=== PATIENT | female | born 1960 | race American Indian/Alaskan Native ===

== ENCOUNTER 2018-12-09 23:57 | Observation (INO) | payer MEDICAID ==
[2018-12-10] MEDS ORDERED: ASPIRIN PO ONE (00:05)
--- NOTE | 2018-12-10 00:41 | XRay Report ---
PROCEDURE: XR CHEST ROUTINE 2V TECHNIQUE: PA and lateral chest radiographs were obtained. HISTORY: Chest Pain COMPARISONS: None. FINDINGS: Heart: Normal. Mediastinum/Vessels: Normal. Lungs/Pleural space: Normal. Bony thorax: No acute osseous abnormality. IMPRESSION: No acute cardiopulmonary process.. This document is electronically signed by Remy Hinojosa MD., Dec 10 2018 12:39:49 AM ET
[2018-12-10 01:06] LABS: Alanine Aminotransferase 14 units/L (7-56); BUN/Creatinine Ratio 29; Blood Urea Nitrogen 20 mg/dL (7-17); Calcium 9.6 mg/dL (8.4-10.2); Hemolysis Index 21
[2018-12-10 01:45] LABS: Hematocrit 43.1 % (30.3-42.9); Hemoglobin 14.7 gm/dl (10.1-14.3); Mean Corpuscular HGB Conc 34 % (30-34); Mean Corpuscular Volume 92 fl (79-97); Platelet Count 183 K/mm3 (140-440); Red Blood Count 4.67 M/mm3 (3.65-5.03); Red Cell Distribution Width 13.7 % (13.2-15.2)
[2018-12-10 02:27] LABS: Basophils % (Manual) 0 % (0.0-1.8); Total Cells Counted 100
[2018-12-10 02:28] LABS: Large Platelets 1+; Platelet Estimate Consistent w Auto; RBC Morphology Normal
--- NOTE | 2018-12-10 06:29 | Emergency Department Report ---
HPI - General Chief Complaint: Chest Pain Time Seen by Provider: 12/10/18 06:16 - HPI HPI: Room 2 The patient is a 58-year-old female presenting with chief complaint of chest pain. The patient states the past 2-3 days she's had intermittent left-sided chest pain described as dull in nature. Patient states she has had shortness of breath, nausea/vomiting and diaphoresis associated with this pain. Patient states she also had pain and numbness down her left upper extremity. Patient says yesterday she developed intermittent midepigastric abdominal pain described as feeling as though her stomach was "turning." The patient states she's never had a stress test or cardiac catheterization Location: Chest Duration: 2-3 days Quality: Dull Severity: Currently 0/10 Modifying factors: [see above] Context: [see above] Mode of transportation: [not driving] ED Past Medical Hx - Past Medical History Hx Hypertension: Yes Hx Diabetes: Yes Hx of Cancer: Yes (pancreatic s/p Whipple 1999) - Surgical History Past Surgical History?: Yes Additional Surgical History: hyster, Whipple secondary to pancreatic CA - Family History Family history: no significant - Social History Smoking Status: Current Every Day Smoker (1/3 pack per day) Substance Use Type: None (denies illicit drug use) ED Review of Systems ROS: Stated complaint: CHEST PAIN/ABDOMINAL PAIN/SOB Other details as noted in HPI Constitutional: diaphoresis Eyes: denies: eye pain ENT: denies: throat pain Respiratory: shortness of breath Cardiovascular: chest pain Gastrointestinal: as per HPI, abdominal pain, nausea, vomiting Genitourinary: denies: dysuria Musculoskeletal: denies: back pain Neurological: denies: headache Physical Exam - Physical Exam Vital Signs: Vital Signs 12/10/18 12/10/18 12/10/18 00:01 01:26 01:31 Temperature 97.8 F Pulse Rate 82 85 85 Respiratory 18 11 L 14 Rate Blood Pressure 170/83 181/89 O2 Sat by Pulse 99 100 99 Oximetry 12/10/18 12/10/18 12/10/18 01:45 01:48 02:01 Temperature Pulse Rate 92 H 85 Respiratory 12 18 15 Rate Blood Pressure 181/89 163/93 O2 Sat by Pulse 99 98 Oximetry 12/10/18 12/10/18 12/10/18 02:15 02:31 02:45 Temperature Pulse Rate 82 85 84 Respiratory 14 15 15 Rate Blood Pressure 163/93 163/93 163/93 O2 Sat by Pulse 99 99 99 Oximetry 12/10/18 12/10/18 12/10/18 03:01 03:15 03:31 Temperature Pulse Rate 80 79 73 Respiratory 13 17 15 Rate Blood Pressure 165/89 163/93 163/93 O2 Sat by Pulse 98 97 98 Oximetry 12/10/18 12/10/18 12/10/18 03:45 04:01 04:15 Temperature Pulse Rate 69 68 69 Respiratory 15 16 22 Rate Blood Pressure 163/93 110/63 110/63 O2 Sat by Pulse 96 94 97 Oximetry 12/10/18 12/10/18 12/10/18 04:31 04:45 05:01 Temperature Pulse Rate 76 70 65 Respiratory 14 15 16 Rate Blood Pressure 110/63 110/63 134/70 O2 Sat by Pulse 98 98 97 Oximetry 12/10/18 12/10/18 05:15 05:31 Temperature Pulse Rate 80 64 Respiratory 16 17 Rate Blood Pressure 110/63 110/63 O2 Sat by Pulse 97 98 Oximetry Physical Exam: GENERAL: The patient is well-developed well-nourished female lying on stretcher not appearing to be in acute distress. [] HEENT: Normocephalic. Atraumatic. Extraocular motions are intact. Patient has moist mucous membranes. NECK: Supple. Trachea midline CHEST/LUNGS: Clear to auscultation. There is no respiratory distress noted. HEART/CARDIOVASCULAR: Regular. There is no tachycardia. There is no gallop rub or murmur. ABDOMEN: Abdomen is soft, nontender. Patient has normal bowel sounds. There is no abdominal distention. SKIN: There is no rash. There is no edema. There is no diaphoresis. NEURO: The patient is awake, alert, and oriented. The patient is cooperative. The patient has normal speech MUSCULOSKELETAL: There is no evidence of acute injury. ED Course Vital Signs 12/10/18 12/10/18 12/10/18 00:01 01:26 01:31 Temperature 97.8 F Pulse Rate 82 85 85 Respiratory 18 11 L 14 Rate Blood Pressure 170/83 181/89 O2 Sat by Pulse 99 100 99 Oximetry 12/10/18 12/10/18 12/10/18 01:45 01:48 02:01 Temperature Pulse Rate 92 H 85 Respiratory 12 18 15 Rate Blood Pressure 181/89 163/93 O2 Sat by Pulse 99 98 Oximetry 12/10/18 12/10/18 12/10/18 02:15 02:31 02:45 Temperature Pulse Rate 82 85 84 Respiratory 14 15 15 Rate Blood Pressure 163/93 163/93 163/93 O2 Sat by Pulse 99 99 99 Oximetry 12/10/18 12/10/18 12/10/18 03:01 03:15 03:31 Temperature Pulse Rate 80 79 73 Respiratory 13 17 15 Rate Blood Pressure 165/89 163/93 163/93 O2 Sat by Pulse 98 97 98 Oximetry 12/10/18 12/10/18 12/10/18 03:45 04:01 04:15 Temperature Pulse Rate 69 68 69 Respiratory 15 16 22 Rate Blood Pressure 163/93 110/63 110/63 O2 Sat by Pulse 96 94 97 Oximetry 12/10/18 12/10/18 12/10/18 04:31 04:45 05:01 Temperature Pulse Rate 76 70 65 Respiratory 14 15 16 Rate Blood Pressure 110/63 110/63 134/70 O2 Sat by Pulse 98 98 97 Oximetry 12/10/18 12/10/18 05:15 05:31 Temperature Pulse Rate 80 64 Respiratory 16 17 Rate Blood Pressure 110/63 110/63 O2 Sat by Pulse 97 98 Oximetry ED Medical Decision Making - Lab Data Result diagrams: 12/10/18 00:14 12/10/18 00:18 Laboratory Tests 12/10/18 12/10/18 12/10/18 00:14 00:14 00:18 WBC 16.8 H RBC 4.67 Hgb 14.7 H Hct 43.1 H MCV 92 MCH 32 MCHC 34 RDW 13.7 Plt Count 183 Lymph % (Auto) Cash Application Representative Price % (Auto) Cash Application Representative Eos % (Auto) Cash Application Representative Baso % (Auto) Cash Application Representative Lymph # Cash Application Representative Price # Cash Application Representative Eos # Cash Application Representative Baso # Cash Application Representative Add Manual Diff Complete Total Counted 100 Seg Neutrophils % Cash Application Representative Seg Neuts % (Manual) 78.0 H Band Neutrophils % 0 Lymphocytes % (Manual) 19.0 Reactive Lymphs % (Man) 0 Monocytes % (Manual) 2.0 Eosinophils % (Manual) 1.0 Basophils % (Manual) 0 Metamyelocytes % 0 Myelocytes % 0 Promyelocytes % 0 Blast Cells % 0 Nucleated RBC % Not Reportable Seg Neutrophils # Cash Application Representative Seg Neutrophils # Man 13.1 H Band Neutrophils # 0.0 Lymphocytes # (Manual) 3.2 Abs React Lymphs (Man) 0.0 Monocytes # (Manual) 0.3 Eosinophils # (Manual) 0.2 Basophils # (Manual) 0.0 Metamyelocytes # 0.0 Myelocytes # 0.0 Promyelocytes # 0.0 Blast Cells # 0.0 WBC Morphology Not Reportable TNR Hypersegmented Neuts Not Reportable Hyposegmented Neuts Not Reportable Hypogranular Neuts Not Reportable Smudge Cells Not Reportable Toxic Granulation Not Reportable Toxic Vacuolation Not Reportable Dohle Bodies Not Reportable Pelger-Huet Anomaly Not Reportable Janes Rods Not Reportable Platelet Estimate Consistent w auto Clumped Platelets Not Reportable Plt Clumps, EDTA Not Reportable Large Platelets 1+ Giant Platelets Not Reportable Platelet Satelliting Not Reportable Plt Morphology Comment Not Reportable RBC Morphology Normal Dimorphic RBCs Not Reportable Polychromasia Not Reportable Hypochromasia Not Reportable Poikilocytosis Not Reportable Anisocytosis Not Reportable Microcytosis Not Reportable Macrocytosis Not Reportable Spherocytes Not Reportable Pappenheimer Bodies Not Reportable Sickle Cells Not Reportable Target Cells Not Reportable Tear Drop Cells Not Reportable Ovalocytes Not Reportable Helmet Cells Not Reportable [employer] [place] Bodies Not Reportable [place] Rings Not Reportable [place] Cells Not Reportable Bite Cells Not Reportable Crenated Cell Not Reportable Elliptocytes Not Reportable Acanthocytes (Spur) Not Reportable Rouleaux Not Reportable Hemoglobin C Crystals Not Reportable Schistocytes Not Reportable Malaria parasites Not Reportable Ga Bodies Not Reportable Hem Pathologist Commnt No Sodium 141 Potassium 3.8 Chloride 103.6 Carbon Dioxide 23 Anion Gap 18 BUN 20 H Creatinine 0.7 Estimated GFR > 60 BUN/Creatinine Ratio 29 Glucose 161 H Calcium 9.6 Total Bilirubin 0.60 AST 16 ALT 14 Alkaline Phosphatase 87 Troponin T < 0.010 Total Protein 7.2 Albumin 4.0 Albumin/Globulin Ratio 1.3 Lipase 49 12/10/18 03:16 WBC RBC Hgb Hct MCV MCH MCHC RDW Plt Count Lymph % (Auto) Price % (Auto) Eos % (Auto) Baso % (Auto) Lymph # Price # Eos # Baso # Add Manual Diff Total Counted Seg Neutrophils % Seg Neuts % (Manual) Band Neutrophils % Lymphocytes % (Manual) Reactive Lymphs % (Man) Monocytes % (Manual) Eosinophils % (Manual) Basophils % (Manual) Metamyelocytes % Myelocytes % Promyelocytes % Blast Cells % Nucleated RBC % Seg Neutrophils # Seg Neutrophils # Man Band Neutrophils # Lymphocytes # (Manual) Abs React Lymphs (Man) Monocytes # (Manual) Eosinophils # (Manual) Basophils # (Manual) Metamyelocytes # Myelocytes # Promyelocytes # Blast Cells # WBC Morphology Hypersegmented Neuts Hyposegmented Neuts Hypogranular Neuts Smudge Cells Toxic Granulation Toxic Vacuolation Dohle Bodies Pelger-Huet Anomaly Janes Rods Platelet Estimate Clumped Platelets Plt Clumps, EDTA Large Platelets Giant Platelets Platelet Satelliting Plt Morphology Comment RBC Morphology Dimorphic RBCs Polychromasia Hypochromasia Poikilocytosis Anisocytosis Microcytosis Macrocytosis Spherocytes Pappenheimer Bodies Sickle Cells Target Cells Tear Drop Cells Ovalocytes Helmet Cells [employer] [place] Bodies [place] Rings [place] Cells Bite Cells Crenated Cell Elliptocytes Acanthocytes (Spur) Rouleaux Hemoglobin C Crystals Schistocytes Malaria parasites Ga Bodies Hem Pathologist Commnt Sodium Potassium Chloride Carbon Dioxide Anion Gap BUN Creatinine Estimated GFR BUN/Creatinine Ratio Glucose Calcium Total Bilirubin AST ALT Alkaline Phosphatase Troponin T < 0.010 Total Protein Albumin Albumin/Globulin Ratio Lipase - EKG Data -: EKG Interpreted by Me EKG shows normal: sinus rhythm Rate: normal - EKG Data When compared to previous EKG there are: previous EKG unavailable Interpretation: other (no ischemic changes seen) - Radiology Data Radiology results: report reviewed (chest x-ray), image reviewed (chest x-ray) interpreted by me: Chest x-ray-no focal infiltrates, pneumothorax [facility] [address] [place] [address] XRay Report Signed Patient: ROSE GONZALEZ MR#: [id number] : 1960 Acct:[id number] Age/Sex: 58 / F ADM Date: 12/09/18 Loc: ED Attending Dr: Ordering Physician: ED MD CHRYSTAL Date of Service: 12/10/18 Procedure(s): XR chest routine 2V Accession Number(s): [id number] cc: ED MD CHRYSTAL Fluoro Time In Minutes: PROCEDURE: XR CHEST ROUTINE 2V TECHNIQUE: PA and lateral chest radiographs were obtained. HISTORY: Chest Pain COMPARISONS: None. FINDINGS: Heart: Normal. Mediastinum/Vessels: Normal. Lungs/Pleural space: Normal. Bony thorax: No acute osseous abnormality. IMPRESSION: No acute cardiopulmonary process.. This document is electronically signed by Ranjti Hinojosa MD., Dec 10 2018 12:39:49 AM ET Transcribed By: RB Dictated By: RANJIT HINOJOSA MD Electronically Authenticated By: RANJIT HINOJOSA MD Signed Date/Time: 12/10/1840 DD/ TD/TT: 12/10/185 - Differential Diagnosis ACS, pericarditis, GERD, gastritis, peptic ulcer disease Critical care attestation.: If time is entered above; I have spent that time in minutes in the direct care of this critically ill patient, excluding procedure time. ED Disposition Clinical Impression: Chest pain Disposition: DC-09 OP ADMIT IP TO THIS HOSP Is pt being admited?: Yes Does the pt Need Aspirin: Yes Condition: Fair Instructions: Chest Pain (ED) Referrals: PRIMARY CAREMD [Primary Care Provider] - 3-5 Days Time of Disposition: 07:07 (hospitalist paged)
[2018-12-10 07:51] LABS: Bilirubin,Urine NEG (Negative); Blood,Urine NEG (Negative); Mucus,Urine FEW /HPF; Protein,Urine <15 mg/dL mg/dL (Negative)
[2018-12-10 08:00] LABS: Color,Urine Yellow (Yellow)
--- NOTE | 2018-12-10 14:20 | History and Physical Report ---
History of Present Illness Date of admission: 12/10/18 08:13 Chief complaint: chest pain History of present illness: The patient is a 58-year-old female presenting with chief complaint of chest pain. The patient states the past 2-3 days she's had intermittent left-sided chest pain described as dull in nature., as bad as 6/10, currently 0/10 -she feels better now CP was assoc with sob, n/v and diaphoresis she also had numbness and pain radiating to LUE Today she then had intermittent epigastric pain, felt like her stomach was turning - Past Medical History; htn, dm, pancreatic ca s/p Whipple 1999) - Surgical History : hysterectomy, Whipple secondary to pancreatic CA - Family History Family history: no significant hx of cad or [place] - Social History Smoking Status: Current Every Day Smoker (1/3 pack per day) Substance Use Type: None (denies illicit drug use), denies heavy etoh use Medications and Allergies Allergies Allergy/AdvReac Type Severity Reaction Status Date / Time No Known Allergies Allergy Verified 12/10/18 00:01 Home Medications Medication Instructions Recorded Confirmed Last Taken Type Acetaminophen [Tylenol] 650 mg PO Q6HR PRN 12/10/18 12/10/18 Unknown History Review of Systems Constitutional: fatigue, no weight loss, no anorexia Ears, nose, mouth and throat: no ear pain Breasts: no deferred Cardiovascular: chest pain, no orthopnea, no palpitations Respiratory: no cough Gastrointestinal: abdominal pain, nausea, vomiting Genitourinary Female: no dyspareunia Menstruation: no currently menstrual Rectal: no pain Musculoskeletal: no neck stiffness Integumentary: no rash Neurological: no head injury Psychiatric: no anxiety Endocrine: no cold intolerance Exam - Constitutional Vitals: Temp Pulse Resp BP Pulse Ox 98.0 F 72 18 181/97 99 12/10/18 13:28 12/10/18 13:28 12/10/18 13:28 12/10/18 13:28 12/10/18 13:28 General appearance: Present: no acute distress, well-nourished - EENT Eyes: Present: PERRL ENT: hearing intact, clear oral mucosa - Neck Neck: Present: supple, normal ROM - Respiratory Respiratory effort: normal Respiratory: bilateral: CTA - Cardiovascular Heart Sounds: Present: S1 & S2. Absent: rub, click - Extremities Extremities: pulses symmetrical, No edema Peripheral Pulses: within normal limits - Abdominal General gastrointestinal: Present: soft, non-tender, non-distended, normal bowel sounds Female genitourinary: Present: normal - Integumentary Integumentary: Present: clear, warm, dry - Musculoskeletal Musculoskeletal: gait normal, strength equal bilaterally - Psychiatric Psychiatric: appropriate mood/affect, intact judgment & insight - Neurologic Neurologic: CNII-XII intact, moves all extremities Results - Labs CBC & Chem 7: 12/10/18 00:14 12/10/18 00:18 Labs: Laboratory Last Values WBC 16.8 K/mm3 (4.5-11.0) H 12/10/18 00:14 RBC 4.67 M/mm3 (3.65-5.03) 12/10/18 00:14 Hgb 14.7 gm/dl (10.1-14.3) H 12/10/18 00:14 Hct 43.1 % (30.3-42.9) H 12/10/18 00:14 MCV 92 fl (79-97) 12/10/18 00:14 MCH 32 pg (28-32) 12/10/18 00:14 MCHC 34 % (30-34) 12/10/18 00:14 RDW 13.7 % (13.2-15.2) 12/10/18 00:14 Plt Count 183 K/mm3 (140-440) 12/10/18 00:14 Lymph % (Auto) Software Development Intern 12/10/18 00:14 [place] % (Auto) Software Development Intern 12/10/18 00:14 Eos % (Auto) Software Development Intern 12/10/18 00:14 Baso % (Auto) Software Development Intern 12/10/18 00:14 Lymph # Software Development Intern 12/10/18 00:14 [place] # Software Development Intern 12/10/18 00:14 Eos # Software Development Intern 12/10/18 00:14 Baso # Software Development Intern 12/10/18 00:14 Add Manual Diff Complete 12/10/18 00:14 Total Counted 100 12/10/18 00:14 Seg Neutrophils % Software Development Intern 12/10/18 00:14 Seg Neuts % (Manual) 78.0 % (40.0-70.0) H 12/10/18 00:14 0 % 12/10/18 00:14 19.0 % (13.4-35.0) 12/10/18 00:14 Reactive Lymphs % (Man) 0 % 12/10/18 00:14 2.0 % (0.0-7.3) 12/10/18 00:14 1.0 % (0.0-4.3) 12/10/18 00:14 0 % (0.0-1.8) 12/10/18 00:14 0 % 12/10/18 00:14 0 % 12/10/18 00:14 0 % 12/10/18 00:14 0 % 12/10/18 00:14 Nucleated RBC % Not Reportable 12/10/18 00:14 Seg Neutrophils # Software Development Intern 12/10/18 00:14 Seg Neutrophils # Man 13.1 K/mm3 (1.8-7.7) H 12/10/18 00:14 Band Neutrophils # 0.0 K/mm3 12/10/18 00:14 3.2 K/mm3 (1.2-5.4) 12/10/18 00:14 Abs React Lymphs (Man) 0.0 K/mm3 12/10/18 00:14 0.3 K/mm3 (0.0-0.8) 12/10/18 00:14 0.2 K/mm3 (0.0-0.4) 12/10/18 00:14 0.0 K/mm3 (0.0-0.1) 12/10/18 00:14 0.0 K/mm3 12/10/18 00:14 0.0 K/mm3 12/10/18 00:14 0.0 K/mm3 12/10/18 00:14 Blast Cells # 0.0 K/mm3 12/10/18 00:14 WBC Morphology Not Reportable 12/10/18 00:14 WBC Morphology TNR 12/10/18 00:14 Hypersegmented Neuts Not Reportable 12/10/18 00:14 Hyposegmented Neuts Not Reportable 12/10/18 00:14 Hypogranular Neuts Not Reportable 12/10/18 00:14 Not Reportable 12/10/18 00:14 Not Reportable 12/10/18 00:14 Not Reportable 12/10/18 00:14 Not Reportable 12/10/18 00:14 Not Reportable 12/10/18 00:14 Not Reportable 12/10/18 00:14 Consistent w auto 12/10/18 00:14 Not Reportable 12/10/18 00:14 Plt Clumps, EDTA Not Reportable 12/10/18 00:14 1+ 12/10/18 00:14 Not Reportable 12/10/18 00:14 Not Reportable 12/10/18 00:14 Plt Morphology Comment Not Reportable 12/10/18 00:14 RBC Morphology Normal 12/10/18 00:14 Dimorphic RBCs Not Reportable 12/10/18 00:14 Not Reportable 12/10/18 00:14 Not Reportable 12/10/18 00:14 Not Reportable 12/10/18 00:14 Not Reportable 12/10/18 00:14 Not Reportable 12/10/18 00:14 Not Reportable 12/10/18 00:14 Not Reportable 12/10/18 00:14 Not Reportable 12/10/18 00:14 Not Reportable 12/10/18 00:14 Not Reportable 12/10/18 00:14 Not Reportable 12/10/18 00:14 Not Reportable 12/10/18 00:14 Not Reportable 12/10/18 00:14 Not Reportable 12/10/18 00:14 Not Reportable 12/10/18 00:14 Not Reportable 12/10/18 00:14 Not Reportable 12/10/18 00:14 Not Reportable 12/10/18 00:14 Not Reportable 12/10/18 00:14 Acanthocytes (Spur) Not Reportable 12/10/18 00:14 Rouleaux Not Reportable 12/10/18 00:14 Not Reportable 12/10/18 00:14 Not Reportable 12/10/18 00:14 Not Reportable 12/10/18 00:14 Not Reportable 12/10/18 00:14 Hem Pathologist Commnt No 12/10/18 00:14 Sodium 141 mmol/L (137-145) 12/10/18 00:18 Potassium 3.8 mmol/L (3.6-5.0) 12/10/18 00:18 Chloride 103.6 mmol/L (98-107) 12/10/18 00:18 Carbon Dioxide 23 mmol/L (22-30) 12/10/18 00:18 18 mmol/L 12/10/18 00:18 BUN 20 mg/dL (7-17) H 12/10/18 00:18 0.7 mg/dL (0.7-1.2) 12/10/18 00:18 Estimated GFR > 60 ml/min 12/10/18 00:18 29 % 12/10/18 00:18 Glucose 161 mg/dL (65-100) H 12/10/18 00:18 Calcium 9.6 mg/dL (8.4-10.2) 12/10/18 00:18 0.60 mg/dL (0.1-1.2) 12/10/18 00:18 AST 16 units/L (5-40) 12/10/18 00:18 ALT 14 units/L (7-56) 12/10/18 00:18 87 units/L (35-129) 12/10/18 00:18 < 0.010 ng/mL (0.00-0.029) 12/10/18 05:49 7.2 g/dL (6.3-8.2) 12/10/18 00:18 4.0 g/dL (3.9-5) 12/10/18 00:18 1.3 % 12/10/18 00:18 49 units/L (13-60) 12/10/18 00:18 Yellow (Yellow) 12/10/18 07:17 Slightly-cloudy (Clear) 12/10/18 07:17 7.0 (5.0-7.0) 12/10/18 07:17 Ur Specific [place] 1.018 (1.003-1.030) 12/10/18 07:17 <15 mg/dl mg/dL (Negative) 12/10/18 07:17 Neg mg/dL (Negative) 12/10/18 07:17 Tr mg/dL (Negative) 12/10/18 07:17 Neg (Negative) 12/10/18 07:17 Pos (Negative) 12/10/18 07:17 Neg (Negative) 12/10/18 07:17 4.0 mg/dL (<2.0) 12/10/18 07:17 Ur Leukocyte Esterase Neg (Negative) 12/10/18 07:17 4.0 /HPF (0.0-6.0) 12/10/18 07:17 2.0 /HPF (0.0-6.0) 12/10/18 07:17 U Epithel Cells (Auto) 3.0 /HPF (0-13.0) 12/10/18 07:17 Few /HPF 12/10/18 07:17 - Imaging and Cardiology Chest x-ray: image reviewed (no pna) Assessment and Plan Assessment and plan: 58f w pmh of htn, previous hx of pancreatic ca sp whipple in 2005 chest pain/htn urgency EKG, cxr neg, fup stress test results optimize bp meds abdominal pain ?gerd PPI DM -ssi Tobacco abuse counseled on cessation >10 minutes
[2018-12-10] MEDS ORDERED: TYLENOL PO PRN (14:21)
[2018-12-10] MEDS ORDERED: APRESOLINE IV PRN (14:21)
[2018-12-10] MEDS ORDERED: ZOFRAN IV PRN (14:22)
[2018-12-10] MEDS ORDERED: D50W (25GM) Syringe IV PRN (14:22)
[2018-12-10] MEDS ORDERED: SODIUM CHLORIDE FLUSH SYRINGE 10 ML IV PRN (14:22)
[2018-12-10] MEDS ORDERED: ALUM-MAG HYDROX-SIMETH 200-200-20MG/5ML PO PRN (15:42)
[2018-12-10] MEDS: HABITROL TD SCH (16:23)
[2018-12-10] MEDS: ZESTRIL PO SCH (16:24)
[2018-12-10] MEDS: PROTONIX PO SCH (16:24)
[2018-12-10] MEDS: NORVASC PO SCH (16:24)
[2018-12-10] MEDS: HumaLOG SUB-Q SCH ×2 (16:30→21:48)
[2018-12-10] MEDS ORDERED: NORCO 5/325 PO PRN (20:42)
[2018-12-10] MEDS: SODIUM CHLORIDE FLUSH SYRINGE 10 ML IV SCH (21:50)
[2018-12-10] MEDS ORDERED: LOVENOX SUB-Q SCH (22:00)
--- NOTE | 2018-12-11 04:52 | Treadmill Report ---
PROCEDURE: Nuclear stress test. REFERRING PHYSICIAN: Hospitalist service. PROTOCOL: The patient was brought to the stress lab in postoperative state, given 10 mCi of technetium 99m at rest. The patient underwent rest imaging. The patient underwent exercise stress test. At peak stress, the patient was given 31 mCi of technetium 99m. Shortly thereafter, the patient underwent stress imaging. Raw imaging reveals mild GI artifact, no significant motion artifact. SPECT image examined carefully in horizontal long axis, vertical long axis and short axis views. There is normal uptake of radioisotope in all reported segments. No evidence of significant fixed or reversible perfusion defects suggestive of prior infarction or ischemia. Gated wall motion reveals normal systolic thickening, calculated ejection fraction of 50%, no TID. CONCLUSIONS: 1. Normal myocardial perfusion scan without evidence of active ischemia or prior infarction. 2. Normal left ventricular systolic performance without evidence of transient ischemic dilatation or stress-induced segmental wall motion abnormalities. 3. Treadmill stress test is reported separately. JOB# [id number] MARGAUX/MARGO
[2018-12-11] MEDS: HumaLOG SUB-Q SCH (07:30)
[2018-12-11] MEDS: HABITROL TD SCH (09:42)
[2018-12-11] MEDS: SODIUM CHLORIDE FLUSH SYRINGE 10 ML IV SCH (09:43)
[2018-12-11] MEDS: ZESTRIL PO SCH (09:43)
[2018-12-11] MEDS: NORVASC PO SCH (09:43)
[2018-12-11] MEDS: PROTONIX PO SCH (09:43)
[2018-12-11 12:35] VITALS: BP 136/69
--- NOTE | 2018-12-11 16:05 | Discharge Summary ---
Providers - Providers Date of Admission: 12/10/18 08:13 Date of discharge: 12/11/18 Attending physician: ELVIRA MANZANARES Primary care physician: INSPECTOR FILTER TIP Hospitalization Condition: Fair Pertinent studies: Stress test--Exercise--Negative Hospital course: 58f w pmh of htn, previous hx of pancreatic ca sp whipple in 2006 chest pain/htn urgency Stress test normal BP normal abdominal pain gerd PPI at D/c DM -ssi Medications adjusted Tobacco abuse counseled on cessation >10 minutes Disposition: - TO HOME OR SELFCARE Core Measure Documentation - Palliative Care Palliative Care/ Comfort Measures: Not Applicable - Core Measures Any of the following diagnoses?: none Exam - Constitutional Vitals: Temp Pulse Resp BP Pulse Ox 98.5 F 77 18 136/69 100 12/11/18 12:22 12/11/18 12:22 12/11/18 12:22 12/11/18 12:22 12/11/18 12:22 General appearance: Present: no acute distress, well-nourished - EENT Eyes: Present: PERRL ENT: hearing intact, clear oral mucosa - Neck Neck: Present: supple, normal ROM - Respiratory Respiratory effort: normal Respiratory: bilateral: CTA - Cardiovascular Heart rate: 78 Rhythm: regular Heart Sounds: Present: S1 & S2. Absent: rub, click - Extremities Extremities: pulses symmetrical, No edema Peripheral Pulses: within normal limits - Abdominal General gastrointestinal: Present: soft, non-tender, non-distended, normal bowel sounds Female genitourinary: Present: normal - Rectal Rectal Exam: deferred - Integumentary Integumentary: Present: clear, warm, dry - Musculoskeletal Musculoskeletal: gait normal, strength equal bilaterally - Psychiatric Psychiatric: appropriate mood/affect, intact judgment & insight - Neurologic Neurologic: CNII-XII intact, moves all extremities - Allied Health Allied health notes reviewed: nursing, case management Plan Activity: no restrictions Follow up with: PRIMARY CARE, [Primary Care Provider] - 3-5 Days
== END 2018-12-11 18:36 | disposition home or self-care (01) ==
LOC: ED 23:57 → 4A 12-10 08:13 → INTOOBSV 12-10 08:13
PROVIDERS: ADMIT Internal Medicine; ATTEND Internal Medicine
DX: K21.9 Gastro-esophageal reflux disease without esophagitis (principal); I10 Essential (primary) hypertension; E11.9 Type 2 diabetes mellitus without complications; F17.210 Nicotine dependence, cigarettes, uncomplicated; Z90.710 Acquired absence of both cervix and uterus; Z85.07 Personal history of malignant neoplasm of pancreas
CPT/HCPCS: 36415; 71046; 78452; 80053; 81001; 82962; 83690; 84484; 85007; 85025; 93005; 93010; 93017; 93306; 96372; 99284; A9502; G0378; J1650